=== PATIENT | male | born 1995 | race Caucasian/White ===

== ENCOUNTER 2017-02-04 12:39 | Outpatient (CLI) | payer SELFPAY ==
[~2017-02-04] VITALS: Ht 177.8 cm; Wt 106.1 kg
[2017-02-04] MEDS ORDERED: OMEP20TA33 PO (13:49)
[2017-02-06] MEDS ORDERED: PANT40TA2 PO (08:00)
[2017-02-06] MEDS ORDERED: SUCR1TAB36 PO (08:00)
== END 2017-02-04 13:53 ==
LOC: PREOP 12:39
PROVIDERS: ATTEND Surgery
DX: Z01.818 Encounter for other preprocedural examination (principal); R11.2 Nausea with vomiting, unspecified

== ENCOUNTER 2017-02-06 07:15 | Day surgery (SDC) | payer BC ==
[~2017-02-06] VITALS: Ht 177.8 cm; Wt 106.1 kg
[~2017-02-06 07:15] MED LIST: OMEP20TA33 PO
[2017-02-06] MEDS ORDERED: LACTATED RINGERS 1,000 ML IV ONE (07:19)
[2017-02-06 07:20] VITALS: BP 148/102
[2017-02-06] MEDS ORDERED: MIDAZOLAM 2 MG/2 ML (VERSED) VIAL ONE (07:29)
[2017-02-06] MEDS ORDERED: proPOfol 200 MG/20 ML (DIPRIVAN) VIAL IV ONE (07:29)
[2017-02-06] MEDS ORDERED: LACTATED RINGERS 1,000 ML IV STA (07:29)
[2017-02-06] MEDS ORDERED: fentaNYL INJECTION 100 MCG/2 ML AMP IVP PRN (07:30)
[2017-02-06] MEDS ORDERED: MIDAZOLAM 2 MG/2 ML (VERSED) VIAL IVP PRN (07:30)
[2017-02-06] MEDS ORDERED: HURRICAINE EXT TUBE (BENZOCAINE) XX PRN (07:30)
--- NOTE | 2017-02-06 07:35 | Progress Note-Pre Operative ---
Pre-Operative Progress Note H&P Reviewed The H&P was reviewed, patient examined and no changes noted. Date Seen by Provider: Feb 06, 2017 Time Seen by Provider: 07:35 Date H&P Reviewed: Feb 06, 2017 Time H&P Reviewed: 07:35 Pre-Operative Diagnosis: nausea and vomiting WEN ALFRED DO Feb 06, 2017 7:35 am
[2017-02-06] MEDS ORDERED: HURRICAINE EXT TUBE (BENZOCAINE) ONE (07:54)
--- NOTE | 2017-02-06 07:59 | Progress Note-Post Operative ---
Post-Operative Progess Note Surgeon (s)/Core Drill Operator (s) Surgeon WEN ALFRED DO Core Drill Operator: na Pre-Operative Diagnosis nausea and vomiting Post-Operative Diagnosis gastritis/duodenitis Procedure & Operative Findings Date of Procedure 02/06/17 Procedure Performed/Findings egd c biopsies Anesthesia Type per transportation security officer Estimated Blood Loss Estimated blood loss (mL): scant Specimens/Packing Specimens Removed duodenum, antrum WEN ALFRED DO Feb 06, 2017 7:59 am
[2017-02-06] MEDS ORDERED: PANT40TA2 PO (08:00)
[2017-02-06] MEDS ORDERED: SUCR1TAB36 PO (08:00)
--- NOTE | 2017-02-06 08:04 | Discharge Inst-Simple/Standard ---
Discharge Inst-Standard Discharge Medications New, Converted or Re-Newed RX: Transmitted to Pharmacy Patient Instructions/Follow Up Plan of Care/Instructions/FU: 2 weeks Esteban Activity as Tolerated: Yes Discharge Diet: Regular Diet WEN ALFRED DO Feb 06, 2017 8:04 am
[2017-02-06 08:20] VITALS: BP 137/86
[2017-02-06 08:50] VITALS: BP 132/88
[2017-02-06 09:00] VITALS: BP 132/88
--- NOTE | 2017-02-07 02:16 | OPERATIVE REPORT ---
DATE OF SERVICE: 02/06/2017 PREOPERATIVE DIAGNOSIS: Nausea and vomiting. POSTOPERATIVE DIAGNOSIS: Duodenitis and gastritis. PROCEDURE: EGD with biopsies. ANESTHESIA: Per BIOLOGY ADJUNCT INSTRUCTOR. SURGEON: Wen Orellana DO INDICATIONS: The patient is a 21-year-old male who has been having significant nausea and vomiting. He understands risks and benefits of procedure and wished to proceed with procedure. Consent was signed in the chart. DESCRIPTION OF PROCEDURE: The patient was taken to the endoscopy suite, placed in the left lateral recumbent position. Timeout was performed. Scope was inserted in mouth, down the esophagus, stomach and into the duodenum. The first part of the duodenum had some erythematous changes consistent with little bit of duodenitis. Biopsy was obtained. There are no polyps, masses or ulcerations. Scope was slowly retracted back into the stomach, which was further insufflated. Some slight erythematous changes consistent with gastritis were present. Biopsies of the antrum were obtained. Scope was retroflexed noting no other pathology. Scope was returned to its normal position, slowly withdrawn to the distal esophagus. There are no polyps, mass or ulcerations. The scope was slowly retracted until completely removed, noting no other pathology. The patient tolerated procedure well without any complications and taken to recovery room in stable condition. RECOMMENDATIONS: The patient will be started on Protonix 40 mg and Carafate 1 gram four times a day. We will see how he is doing in the office in about two to three weeks and follow up on pathology. Job ID: [id number] DocumentID: [id number] Dictated Date: 02/06/2017 17:11:34 Poultry Pathologist Date: 02/07/2017 01:04:55 Dictated By: WEN ORELLANA DO
== END 2017-02-06 09:00 | disposition home or self-care (01) ==
LOC: ENDO 07:15
PROVIDERS: ATTEND Surgery
DX: K29.70 Gastritis, unspecified, without bleeding (principal); K29.80 Duodenitis without bleeding; J45.909 Unspecified asthma, uncomplicated; E66.9 Obesity, unspecified; Z68.33 Body mass index [BMI] 33.0-33.9, adult

== ENCOUNTER → 2017-02-19 | Outpatient (CLI) | payer BC ==
[~2017-02-19] MED LIST changes: +PANT40TA2 PO; +SUCR1TAB36 PO
--- NOTE | 2017-02-19 12:10 | Diagnostic Imaging Report ---
PROCEDURE: US Gallbladder. TECHNIQUE: Multiple real-time grayscale images were obtained over the right upper quadrant in various projections. INDICATION: Abdominal pain. FINDINGS: The pancreas is largely obscured. The liver is fairly homogeneous with no focal lesion seen. The gallbladder demonstrates no stones or wall thickening. The CBD is obscured by bowel gas. The right kidney is 10.4 cm in length with no hydronephrosis or focal lesion. No fluid collection in the upper right abdomen is seen. Sonographic Rivera's sign is reportedly negative. IMPRESSION: Unremarkable exam. Dictated by: Dictated on workstation # [id number]
== END ==
LOC: RAD 06:51
PROVIDERS: ATTEND Surgery
DX: R10.11 Right upper quadrant pain (principal)
CPT/HCPCS: 76705

== ENCOUNTER → 2017-02-26 | Outpatient (CLI) | payer BC ==
[~2017-02-26] MED LIST changes: +CATHETER FLUSH 10 ML SYR IV PRN
--- NOTE | 2017-02-26 16:49 | Diagnostic Imaging Report ---
INDICATION: Abdominal pain. EXAMINATION: Hepatobiliary scan. This study was performed following administration of 5.46 mCi of Choletec and 8 ounces of Ensure. COMPARISON: There are no previous nuclear medicine studies available for comparison. FINDINGS: The gallbladder ultrasound exam performed on 02/19/2017 failed to show any sign of cholelithiasis or of an acute abnormality of the common bile duct. On this study, there is uptake of the radiotracer by the gallbladder before 30 minutes. This would weigh again the diagnosis of acute cholecystitis. There is also extension of the radiotracer into the small bowel indicating that the common bile duct is not obstructed. The ejection fraction is only 29.6% (normal greater than 35%). The reason for the diminished ejection fraction is not certain. The possibility of biliary dyskinesia should be considered. IMPRESSION: 1. There is no evidence for acute cholecystitis or for obstruction of the common bile duct. 2. The ejection fraction is 29.6% and below normal limits. Dictated by: Dictated on workstation # [id number]
== END ==
LOC: CARD 09:44
PROVIDERS: ATTEND Surgery
DX: R10.13 Epigastric pain (principal); R11.2 Nausea with vomiting, unspecified
CPT/HCPCS: 78227

== ENCOUNTER 2017-03-06 05:34 | Outpatient (CLI) | payer BC ==
[~2017-03-06] VITALS: Ht 177.8 cm; Wt 106.1 kg
[~2017-03-06 05:34] MED LIST changes: -CATHETER FLUSH 10 ML SYR IV PRN
== END 2017-03-06 09:12 ==
LOC: PREOP 05:34
PROVIDERS: ATTEND Surgery
DX: Z01.818 Encounter for other preprocedural examination (principal); K82.8 Other specified diseases of gallbladder

== ENCOUNTER 2017-03-12 07:48 | Day surgery (SDC) | payer BC ==
[~2017-03-12] VITALS: Ht 177.8 cm; Wt 106.1 kg
[2017-03-12] MEDS ORDERED: ceFAZolin 2 GM/50 ML NS 50 ML IV ONE (08:15)
[2017-03-12] MEDS ORDERED: LIDOCAINE 1% INJ 20 ML (XYLOCAINE) VIAL ONE (08:19)
[2017-03-12] MEDS ORDERED: BUPIVACAINE 0.5% 30 ML (SENSORCAINE) VIAL ONE (08:19)
[2017-03-12] MEDS ORDERED: LACTATED RINGERS 1,000 ML IV PRN ×2 (08:21→08:35)
[2017-03-12] MEDS ORDERED: CATHETER FLUSH 10 ML SYR IV PRN (08:30)
[2017-03-12] MEDS ORDERED: LIDOCAINE PF 2% 5 ML (XYLOCAINE) VIAL ONE (08:37)
[2017-03-12] MEDS ORDERED: ROCURONIUM 50 MG/5 ML (ZEMURON) VIAL IV ONE (08:37)
[2017-03-12] MEDS ORDERED: ONDANSETRON 4 MG/2 ML (SDV) Z0FRAN ONE (08:37)
[2017-03-12] MEDS ORDERED: NEOSTIGMINE (BLOXIVERZ ) 1 MG/1ML 10 ML VIAL ONE (08:37)
[2017-03-12] MEDS ORDERED: fentaNYL INJECTION 250 MCG/5 ML AMP ONE (08:37)
[2017-03-12] MEDS ORDERED: MIDAZOLAM 2 MG/2 ML (VERSED) VIAL ONE (08:37)
[2017-03-12] MEDS ORDERED: proPOfol 200 MG/20 ML (DIPRIVAN) VIAL IV ONE (08:37)
[2017-03-12] MEDS ORDERED: GLYCOPYRROLATE 0.2 MG/ML (ROBINUL) 2 ML VIAL ONE (08:37)
[2017-03-12] MEDS ORDERED: SEVOFLURANE (ULTANE) 15 ML INHAL SOLN ONE ×2 (08:37→10:12)
[2017-03-12] MEDS ORDERED: DEXAMETHASONE 10 MG/ML (DECADRON) 1 ML VIAL ONE (08:37)
[2017-03-12 08:38] LABS: BASOPHILS % (AUTO) 1 % (0-10); EOSINOPHILS # (AUTO) 0.3 10^3/uL (0.0-0.3); EOSINOPHILS % (AUTO) 6 % (0-10); HEMATOCRIT 45 % (40-54); HEMOGLOBIN 16.1 G/DL (13.3-17.7); LYMPHOCYTES # (AUTO) 1.4 X 10^3 (1.0-4.0); LYMPHOCYTES % (AUTO) 24 % (12-44); MEAN CORPUSCULAR HEMOGLOBIN 30 PG (25-34); MEAN CORPUSCULAR HGB CONC 36 G/DL (32-36); MEAN CORPUSCULAR VOLUME 82 FL (80-99); MEAN PLATELET VOLUME 10.3 FL (7.4-10.4); MONOCYTES # (AUTO) 0.5 X 10^3 (0.0-1.0); MONOCYTES % (AUTO) 9 % (0-12); NEUTROPHILS # (AUTO) 3.5 X 10^3 (1.8-7.8); NEUTROPHILS % (AUTO) 60 % (42-75); PLATELET COUNT 105 10^3/uL (130-400); RED BLOOD COUNT 5.46 10^6/uL (4.35-5.85); WHITE BLOOD COUNT 5.8 10^3/uL (4.3-11.0)
[2017-03-12 08:47] VITALS: BP 143/89
--- NOTE | 2017-03-12 10:15 | Progress Note-Post Operative ---
Post-Operative Progess Note Surgeon (s)/Diesel Engine Mechanic Apprentice (s) Surgeon WEN ALFRED DO Diesel Engine Mechanic Apprentice: Dr. White Pre-Operative Diagnosis biliary dyskinesia Post-Operative Diagnosis same Procedure & Operative Findings Date of Procedure 03/12/17 Procedure Performed/Findings lap john c ioc Anesthesia Type gen Estimated Blood Loss Estimated blood loss (mL): minimal Specimens/Packing Specimens Removed gallbladder WEN ALFRED DO Mar 12, 2017 10:15
--- NOTE | 2017-03-12 10:15 | Progress Note-Pre Operative ---
Pre-Operative Progress Note H&P Reviewed The H&P was reviewed, patient examined and no changes noted. Date Seen by Provider: Mar 12, 2017 Time Seen by Provider: 09:00 Date H&P Reviewed: Mar 12, 2017 Time H&P Reviewed: 09:00 Pre-Operative Diagnosis: biliary dyskinesia WEN ALFRED DO Mar 12, 2017 10:15
[2017-03-12] MEDS ORDERED: DOCU-143 PO (10:16)
[2017-03-12] MEDS ORDERED: ACHD5005 PO (10:17)
--- NOTE | 2017-03-12 10:18 | Discharge Inst-Simple/Standard ---
Discharge Inst-Standard Discharge Medications New, Converted or Re-Newed RX: RX on Chart Patient Instructions/Follow Up Plan of Care/Instructions/FU: 2 weeks Esteban Activity as Tolerated: No Discharge Diet: Regular Diet Other Inst to Patient Follow up Appt: Make appointment for 2 weeks. Instructions: No lifting greater than 10 pounds. No strenuous activity. May shower in 24 hours, no tub bath or soaking. Use incentive spirometer at home as directed. No Smoking Skin/Wound Care: You have special glue over incisions it will fall off on its own. Symptoms to Report: Appetite Changes, Extremity Discoloration, Numbness/Tingling, Swelling Increased , Bleeding Excessive, Eyesight Changes, Pain Increased, Urine Color Change, Constipation(Persistent), Fever over 101 degree F, Pain/Pressure in chest, Urinating Difficulty, Cough Up/Vomit Blood, Heart Beat Irreg/Pounding, Pain/ Pressure in jaw, Vaginal Bleeding Increase, Cramps in feet or legs, Lightheadedness, Pain/Pressure in shoulder, Diarrhea(Persistent), Memory Changes Suddenly, Questions/Concerns, Weight gain consecutive days, Dizziness/ Fainting, Nausea/Vomiting, Shortness of Breath, Weight gain over 2 pounds. If eyes or skin turn yellow notify physician. If questions or concerns contact your physician Or seek help at emergency department. WEN ALFRED DO Mar 12, 2017 10:18
[2017-03-12] MEDS ORDERED: HYDROcodone/APAP 5 MG/325 MG (LORTAB) TAB PO PRN (10:30)
[2017-03-12] MEDS ORDERED: ONDANSETRON 4 MG/2 ML (SDV) Z0FRAN IVP PRN (10:45)
[2017-03-12] MEDS: HYDROmorphone (DILAUDID) 2 MG/ML VIAL IVP PRN ×2 (10:50→11:00)
--- NOTE | 2017-03-12 10:53 | Diagnostic Imaging Report ---
INDICATION: Intraoperative cholangiogram. Fluoroscopy was provided during performance of the laparoscopic cholecystectomy and intraoperative cholangiogram. 7 seconds of fluoroscopy was utilized. Contrast is identified within the nondilated intrahepatic and extrahepatic bile ducts. There is free passage of contrast into the duodenum. No filling defects are seen to suggest retained stone. IMPRESSION: Fluoroscopy for intraoperative cholangiogram. Dictated by: Dictated on workstation # [id number]
[2017-03-12 11:40] VITALS: BP 158/94
[2017-03-12 12:10] VITALS: BP 155/100
[2017-03-12 12:40] VITALS: BP 149/84
[2017-03-12 14:05] VITALS: BP 149/84
--- NOTE | 2017-03-13 03:03 | OPERATIVE REPORT ---
DATE OF SERVICE: 03/12/2017 PREOPERATIVE DIAGNOSIS: Biliary dyskinesia. POSTOPERATIVE DIAGNOSIS: Biliary dyskinesia. PROCEDURE: Laparoscopic cholecystectomy with intraoperative cholangiogram. SURGEON: Wen Orellana DO. MUSICAL STRING MAKER: Dr. White, assisted in retraction, dissection and closure. ANESTHESIA: General. ESTIMATED BLOOD LOSS: Minimal. COMPLICATIONS: None. INDICATIONS: The patient is a 18-year-old male, who has been having some nausea and some slight epigastric abdominal pain. He had a workup demonstrating a normal gallbladder and HIDA scan demonstrating an ejection fraction of locally 5% consistent with biliary dyskinesia. He understands risks, benefits of laparoscopic cholecystectomy with intraoperative cholangiogram and all other indicated procedures and wishes to proceed. Consent was on chart. DESCRIPTION OF PROCEDURE: The patient was taken to the operating suite, was prepped and draped in sterile fashion. Surgical pause was performed. Local anesthetic was infiltrated into the area of the incision. The incision was made just above the umbilicus and cautery used to dissect down to the fascia and then scored grasped and elevated and the abdomen was then entered, a 0 Vicryl was placed in a [id number] fashion for closure at the end. A balloon trocar was inserted and pneumoperitoneum was achieved. Under direct visualization of the laparoscope, a 5 mm trocar was placed in the subxiphoid region and two 5 mm trocars were placed in the right upper quadrant. The gallbladder was grasped and elevated. There were some slight adhesions to the gallbladder. These were taken down. The cystic duct and cystic artery were then dissected out clips were placed on the proximal and distal portion of the cystic artery. Clips were placed on the distal portion of the cystic duct, which was then partially transected and an arrow catheter was inserted and cholangiogram was then performed. There were no filling defects and contrasts made its way into the duodenum without difficulty. The Arrow catheter was removed. Clips were placed on the proximal portion of the cystic duct and has been completely transected along with the artery. The gallbladder was then removed from the gallbladder fossa with hook cautery achieving hemostasis. It was placed in an Endobag and removed through the 12 mm trocar site. Copious amounts of irrigation were used to irrigate the abdomen and suctioned. The area was then reinspected and hemostasis had been achieved. The trocars were removed after the abdomen was desufflated. The umbilical incision was closed with the previously placed 0 Vicryl. The wounds were then irrigated and the skin was then closed using 4-0 Monocryl in a subcuticular fashion. The area was then washed and dried and Dermabond was placed over incisions. The patient tolerated the procedure well without any complications and was taken to the recovery room in stable condition. Job ID: [id number] DocumentID: [id number] Dictated Date: 03/12/2017 19:37:27 Projection Welding Machine Operator Date: 03/13/2017 03:02:21 Dictated By: WEN ORELLANA DO
== END 2017-03-12 14:05 | disposition home or self-care (01) ==
LOC: SDC 07:48
PROVIDERS: ATTEND Surgery
DX: K81.1 Chronic cholecystitis (principal); J45.909 Unspecified asthma, uncomplicated; K21.9 Gastro-esophageal reflux disease without esophagitis
CPT/HCPCS: 36415; 85025; 87081